=== PATIENT | female | born 1980 | race Two or more races ===

== ENCOUNTER 2022-08-23 19:52 | Emergency (ER) | payer SELFPAY ==
[~2022-08-23] VITALS: Ht 149.9 cm; Wt 113.6 kg
[2022-08-24 03:14] VITALS: BP 106/79
[2022-08-24] MEDS ORDERED: IBUP800T27 PO (03:20)
[2022-08-24] MEDS ORDERED: SULF800T7 PO (03:20)
[2022-08-24] MEDS ORDERED: KETOROLAC TROMETH 60MG/2ML VIAL IM ONE (03:30)
[2022-08-24] MEDS ORDERED: cefTRIAXone SOD 1,000 MG VL IM ONE (03:30)
[2022-08-24] MEDS ORDERED: TETANUS-DIPTH-ACEL PERTUSSIS 0.5ML SYR Tdap IM ONE (04:15)
== END 2022-08-24 04:26 | disposition home or self-care (01) ==
LOC: ER 19:52
DX: L02.211 Cutaneous abscess of abdominal wall (principal); Z88.6 Allergy status to analgesic agent
CPT/HCPCS: 10061; 90471; 90715; 96372; 99284; J0696; J1885